=== PATIENT | male | born 1970 ===

== ENCOUNTER 2024-05-07 01:19 | Outpatient (CLI) | payer BC, SELFPAY ==
--- NOTE | 2024-05-07 | ETT_ITS ---
APPROVED REPORT Exam: Exercise Treadmill Patient Location: Out-Patient Room/Bed: Stress Nurse: Cherrie Feldman RN Ordering Provider:NELLY DE LA ROSA, Contact Number: [phone] BMI: 41.47 Baseline Rhythm: Sinus Rhythm Comment: Occasional PAC's Indications: Chest pain, HTN Medical History Medical History: Chest pain, HTN Cardiac Medications: Albuterol, epi pen, hydrochlorothiazide, losartan Allergies: NKDA, Bee venom Cardiac Risk Factors: Family hx Previous Cardiac Procedures: None Pretest Chest Pain Characteristics: None Exercise History: Physically active Physical Disabilities: None Lung Sounds: Clear to auscultation Heart Sounds: Regular Stress Test Details Test: Exercise stress testing was performed using a Kobe protocol. Rest Stress HR Resting HR Supine: 81 bpm Max Heart Rate (APMHR): 169 bpm Resting HR Standin bpm Target HR (85% APMHR): 144 bpm Max HR Achieved: 146 bpm % of APMHR: 86 Recovery HR: 86 bpm HR response to stress: Normal HR response to stress BP Resting BP Supine: 132/92 mmHg Resting BP Standin/92 mmHg Max BP: 198/88 mmHg Recovery BP: 138/82 mmHg BP response to stress: Normal blood pressure response to stress. ECG Resting ECG: Sinus Rhythm Ectopy: Occasional PAC's Stress ECG: Sinus Tachycardia ST Change: No significant ST segment changes noted Arrhythmia: Occasional PAC's, rare PVC's Recovery ECG: Sinus Rhythm Recovery ST Change: No significant ST segment changes noted Recovery Arrhythmia: Occasional PAC's, rare PVC's Clinical Reason for Termination: Target HR Achieved Stress Symptoms: None Exercise duration: 09 min55 sec Highest Stage Reached: Stage 4: 4.2 mph at 16% grade. Exercise capacity: 11.68 METs Angina Score: None Montaño Treadmill Score: 9.2 Rate Pressure Product: [id number] Stress ECG Conclusion 1. Resting electrocardiogram showed poor R wave progression 2. Patient exercised on the Kobe protocol and completed a workload of 11.68 METS 3. Normal heart rate and blood pressure response to exercise. Patient achieved 86% of predicted hear t rate for age 4. There was no electrocardiographic evidence of myocardial ischemia 5. There were no significant dysrhythmias Montaño Treadmill Score is 9.2 which is Low risk. Stress Test Summary STAGE Time (mins) Speed (mph) Grade (%) HR BP SpO2 SYMPTOMS METS Supine 81 132/92 96% Standing 76 142/92 1 3 1.7 10 107 162/98 95% 4.5 2 6 2.5 12 124 93% 7 3 9 3.4 14 130 10 4 12 4.2 16 146 13 1 min recovery 115 198/88 95% 3 min recovery 89 158/86 6 min recovery 86 138/82 95%
== END 2024-05-07 01:39 ==
LOC: DI 01:19
PROVIDERS: Visit Provider Family Medicine
DX: R07.9 Chest pain, unspecified (principal); I10 Essential (primary) hypertension
CPT/HCPCS: 93017

== ENCOUNTER 2025-06-25 14:17 | Outpatient (CLI) | payer BC, SELFPAY ==
--- NOTE | 2025-06-25 13:56 | DI.RAD_ITS ---
Exam(s) XR CHEST 2V PA LATERAL EXAM: XR CHEST 2V PA LATERAL CLINICAL HISTORY: cough, R05.9. TECHNIQUE: 2D digital imaging was performed. COMPARISON: No exams were available for comparison FINDINGS: 2 views: There is mild cardiomegaly. The mediastinum is not widened. Lungs are clear. No infiltrates nor pleural effusions. No pulmonary edema. IMPRESSION: No acute pulmonary findings. DATA REPOSITORY: RADIATION DOSE DELIVERED:
== END 2025-06-25 14:37 ==
LOC: DI 14:19
PROVIDERS: PCP Family Medicine; Visit Provider Internal Medicine Pulmonary Disease
DX: R05.9 Cough, unspecified (principal)
CPT/HCPCS: 71046